=== PATIENT | male | born 1960 | race African-American/Black ===

== ENCOUNTER 2019-12-24 10:48 | Emergency (ER) | payer SELFPAY ==
[~2019-12-24] VITALS: Ht 180.3 cm; Wt 75.0 kg
[2019-12-24 10:56] VITALS: BP 169/89
== END 2019-12-24 12:29 | disposition home or self-care (01) ==
LOC: ER 10:48
DX: R13.19 Other dysphagia (principal)
CPT/HCPCS: 99283

== ENCOUNTER 2019-12-28 08:44 | Emergency (ER) | payer MEDICAID ==
[~2019-12-28] VITALS: Ht 180.3 cm; Wt 71.0 kg
[2019-12-28 08:55] VITALS: BP 138/89
== END 2019-12-28 09:38 | disposition left against medical advice (07) ==
LOC: ER 08:58 → EDBEDREQ 09:14 → ER 09:38 → CANBEDREQ 11:40
DX: R13.10 Dysphagia, unspecified (principal); I49.9 Cardiac arrhythmia, unspecified
CPT/HCPCS: 93005; 99283